=== PATIENT | male | born 1995 | race Caucasian/White ===

== ENCOUNTER 2020-05-27 22:12 | Emergency (ER) | payer BC ==
[~2020-05-27] VITALS: Ht 185.4 cm; Wt 95.0 kg
--- NOTE | 2020-05-27 22:23 | NUR ---
INITIAL PT CONTACT. PT PRESENTS TO ED C/O SORE THROAT, "SWOLLEN TONSILS". PT SEEN AT [facility] TODAY, FLU SWAB, STREP AND COVID SWAB, PT BELIEVES ALL WERE NEGATIVE. PT PRESCRIBED ABX, UNABLE TO FILL RX. STATES HE IS FEELING WORSE AND WORRIED MIGHT HAVE A TONSILAR ABSCESS, "I HAVE HAD A LOT OF TONSIL PROBLEMS LATELY, LAST 6 MONTHS". PT SPEAKING IN FULL SENTENCES AND ABLE TO OPEN MOUTH FULLY UPON EXAM. NO CHANGES IN VOICE. PT SITTING UPRIGHT ON GURNEY, AT BEDSIDE. CALL LIGHT IN REACH.
--- NOTE | 2020-05-27 22:29 | NUR ---
ERP AT BEDSIDE
[2020-05-27] MEDS ORDERED: IBUPROFEN 200 MG TABLET ONE (22:43)
[2020-05-27] MEDS ORDERED: DEXAMETHASONE 4 MG TABLET ONE (22:43)
[2020-05-27] MEDS ORDERED: AMOXICILLIN 500 MG CAPSULE ONE (22:43)
[2020-05-27 22:58] LABS: BASOPHILS % (AUTO) 0 % (0-1); EOSINOPHILS % (AUTO) 1 % (1-7); LYMPHOCYTES % (AUTO) 8 % (22-44); MEAN CORPUSCULAR HEMOGLOBIN 29.3 pg (27.5-34.5); MEAN CORPUSCULAR HGB CONC 34.8 g/dL (33.2-36.2); MEAN PLATELET VOLUME 7.1 fL (7.4-10.4); MONOCYTES % (AUTO) 6 % (2-9); NEUTROPHILS % (AUTO) 85 % (42-75); PLATELET COUNT 310 x10^3/uL (130-400); RED CELL DISTRIBUTION WIDTH 13.5 % (9.4-14.8)
[2020-05-27 22:59] LABS: MD NO
[2020-05-27] MEDS ORDERED: AMOXICILLIN 500 MG CAPSULE PO ONE (23:00)
[2020-05-27] MEDS ORDERED: IBUPROFEN 200 MG TABLET PO ONE (23:00)
[2020-05-27] MEDS ORDERED: DEXAMETHASONE 4 MG TABLET PO ONE (23:00)
[2020-05-27 23:06] LABS: ALANINE AMINOTRANSFERASE 37 U/L (12-78); ALBUMIN 3.7 g/dL (3.4-5.0); ANION GAP 7 mmol/L (5-15); CALCIUM 8.7 mg/dL (8.5-10.1); CHLORIDE 108 mmol/L (98-107); CREATININE 1.07 mg/dL (0.7-1.3)
[2020-05-27 23:08] LABS: ALKALINE PHOSPHATASE 79 U/L (45-117); BILIRUBIN,TOTAL 0.7 mg/dL (0.2-1.0); TOTAL PROTEIN 6.8 g/dL (6.4-8.2)
[2020-05-27 23:45] VITALS: BP 132/69
--- NOTE | 2020-05-27 23:46 | NUR ---
Patient given discharge instructions and they have confirmed that they understand the instructions. Patient ambulatory with steady gait.
== END 2020-05-27 23:56 | disposition home or self-care (01) ==
LOC: ED 23:52
DX: J02.0 Streptococcal pharyngitis (principal); R50.9 Fever, unspecified; R10.9 Unspecified abdominal pain
CPT/HCPCS: 36415; 80053; 85025; 99284

== ENCOUNTER 2020-07-14 08:58 | Emergency (ER) | payer BC ==
[~2020-07-14] VITALS: Ht 182.9 cm; Wt 106.0 kg
--- NOTE | 2020-07-14 09:31 | NUR ---
PT CHANGED INTO GOWN, MONITORS IN PLACE. PA AT BS
[2020-07-14] MEDS ORDERED: ALBUTEROL/IPRATROPIUM 2.5MG/0.5MG, 3 ML NPPB ONE (10:00)
[2020-07-14] MEDS ORDERED: ACETAMINOPHEN 500 MG TABLET PO ONE (10:00)
[2020-07-14] MEDS ORDERED: ALBUTEROL SULFATE 2.5 MG/3 ML ONE (10:01)
[2020-07-14] MEDS ORDERED: ACETAMINOPHEN 500 MG TABLET ONE (10:01)
[2020-07-14] MEDS ORDERED: KETOROLAC 30 MG/1 ML ONE (10:24)
[2020-07-14] MEDS ORDERED: KETOROLAC 30 MG/1 ML IVPush ONE (10:30)
[2020-07-14] MEDS ORDERED: SODIUM CHLORIDE 0.9% 1,000ML IVBOLUS ONE (10:30)
[2020-07-14 10:42] LABS: BASOPHILS % (AUTO) 0 % (0-1); EOSINOPHILS % (AUTO) 0 % (1-7); LYMPHOCYTES % (AUTO) 17 % (22-44); MEAN CORPUSCULAR HEMOGLOBIN 29.1 pg (27.5-34.5); MEAN CORPUSCULAR HGB CONC 34.4 g/dL (33.2-36.2); MONOCYTES % (AUTO) 8 % (2-9); NEUTROPHILS % (AUTO) 75 % (42-75); PLATELET COUNT 299 x10^3/uL (130-400); RED CELL DISTRIBUTION WIDTH 13.8 % (9.4-14.8)
[2020-07-14 10:45] LABS: ALBUMIN 3.8 g/dL (3.4-5.0); ANION GAP 6 mmol/L (5-15); CALCIUM 8.7 mg/dL (8.5-10.1); CHLORIDE 106 mmol/L (98-107)
[2020-07-14 10:49] LABS: ALANINE AMINOTRANSFERASE 30 U/L (12-78); ALKALINE PHOSPHATASE 77 U/L (45-117); BILIRUBIN,TOTAL 0.3 mg/dL (0.2-1.0); CREATININE 1.02 mg/dL (0.7-1.3); TOTAL PROTEIN 7.3 g/dL (6.4-8.2)
[2020-07-14 10:55] LABS: RAPID INFLUENZA A Negative (Negative); RAPID INFLUENZA B Negative (Negative)
[2020-07-14 11:00] LABS: MD NO
[2020-07-14 12:09] VITALS: BP 138/74
--- NOTE | 2020-07-14 12:38 | NUR ---
Patient given discharge instructions and they have confirmed that they understand the instructions. Patient ambulatory with steady gait.
== END 2020-07-14 12:41 | disposition home or self-care (01) ==
LOC: ED 09:42
DX: J06.9 Acute upper respiratory infection, unspecified (principal); Z20.822 Contact with and (suspected) exposure to COVID-19; B97.89 Other viral agents as the cause of diseases classified elsewhere; R50.9 Fever, unspecified; R06.00 Dyspnea, unspecified; R07.89 Other chest pain; M54.2 Cervicalgia; M79.89 Other specified soft tissue disorders; R06.02 Shortness of breath
CPT/HCPCS: 36415; 71045; 80053; 83605; 84145; 85025; 87081; 87400; 87880; 94640; 96361; 96374; 99284; J1885; J7030; U0003